=== PATIENT | male | born 1995 | race Caucasian/White ===

== ENCOUNTER 2023-12-01 06:13 | Day surgery (SDC) | payer BC ==
[2023-12-01] MEDS ORDERED: Midazolam 1 MG/ML 2 ML SDV ONE (07:21)
[2023-12-01] MEDS ORDERED: Propofol 200 MG/20 ML SDV ONE ×3 (07:21→08:10)
[2023-12-01] MEDS ORDERED: fentaNYL 50 MCG/ML SDV ONE (07:21)
[2023-12-01] MEDS: Lactated Ringers 1,000 ML IV SCH (07:32)
== END 2023-12-01 09:50 | disposition home or self-care (01) ==
LOC: JP.SDS 06:13
PROVIDERS: ATTEND Student in an Organized Health Care Education/Training Program
DX: D12.5 Benign neoplasm of sigmoid colon (principal); K29.51 Unspecified chronic gastritis with bleeding; I10 Essential (primary) hypertension; G47.33 Obstructive sleep apnea (adult) (pediatric); F41.9 Anxiety disorder, unspecified
CPT/HCPCS: 43239; 45385; 88305; 93005; J2250; J2704; J3010; J7120; 93010

== ENCOUNTER 2024-07-19 16:15 | Emergency (ER) | payer BC ==
[2024-07-19] MEDS: Chlorthalidone 25 MG Tab PO ONE (17:04)
[2024-07-19 17:05] LABS: BASOPHILS ABSOLUTE AUTO 0.12 K/uL (0.00-0.10); BASOPHILS PERCENT AUTO 0.8 % (0.1-1.3); EOSINOPHILS ABSOLUTE AUTO 0.55 K/uL (0.00-0.40); EOSINOPHILS PERCENT AUTO 3.8 % (0.0-5.4); HEMATOCRIT 42.1 % (38.4-49.7); HEMOGLOBIN 13.9 g/dL (12.9-16.9); IMMATURE GRAN ABSOLUTE AUTO 0.16 K/uL (0.00-0.23); IMMATURE GRAN PERCENT AUTO 1.1 % (0.0-0.7); LYMPHOCYTES ABSOLUTE AUTO 2.66 K/uL (0.8-3.3); LYMPHOCYTES PERCENT AUTO 18.4 % (11.4-47.7); MEAN CORPUSCULAR HEMOGLOBIN 26.4 pg (31.6-35.5); MEAN CORPUSCULAR VOLUME 79.9 fL (81.4-99.0); MONOCYTES ABSOLUTE AUTO 1.43 K/uL (0.20-0.90); MONOCYTES PERCENT AUTO 9.9 % (3.3-12.6); NEUTROPHILS ABSOLUTE AUTO 9.52 K/uL (1.0-7.6); PLATELET COUNT,PLT 337 K/uL (130-375); RED BLOOD CELL COUNT 5.27 M/uL (4.14-5.76); WHITE BLOOD CELL COUNT,WBC 14.4 K/uL (3.2-11.0)
[2024-07-19] MEDS: Ondansetron 4 MG Tab.DIS PO ONE ×2 (17:11→19:06)
[2024-07-19 17:25] LABS: HEMOGLOBIN A1C 7.3 % (4.5-6.2)
[2024-07-19 17:26] LABS: A/G RATIO 0.8 (1.2-2.2); ALANINE AMINOTRANSFERASE,ALT 36 U/L (12-78); ALBUMIN 3.3 g/dL (3.4-5.0); ALKALINE PHOSPHATASE 79 U/L (46-116); ANION GAP 7.7 mmol/L (5.0-14.0); ASPARTATE AMNIOTRANSFERASE,AST 18 U/L (15-37); BILIRUBIN TOTAL 0.3 mg/dL (0.2-1.0); BLOOD UREA NITROGEN,BUN 8 mg/dL (7-18); CALCIUM 9.7 mg/dL (8.5-10.1); CARBON DIOXIDE,CO2 35 mmol/L (21-32); CHLORIDE,CL 101 mmol/L (100-108); CREATININE 0.7 mg/dL (0.8-1.3); EST CRCL DRUG DOSING (CG) 145.58 mL/min; ESTIMATED GFR 128 mL/min (>60); GLUCOSE RANDOM 123 mg/dL (74-106); POTASSIUM,K 3.7 mmol/L (3.6-5.2); PROTEIN TOTAL,TP 7.6 g/dL (6.4-8.2); SODIUM,NA 140 mmol/L (140-148)
[2024-07-19] MEDS: Ondansetron 4 MG/2 ML SDV IVPUSH ONE (17:34)
[2024-07-19] MEDS: Meclizine 25 MG Tab PO ONE ×2 (18:15→19:41)
== END 2024-07-19 20:44 | disposition home or self-care (01) ==
LOC: JP.ED 16:15
DX: R42 Dizziness and giddiness (principal); I10 Essential (primary) hypertension; E11.65 Type 2 diabetes mellitus with hyperglycemia; E66.9 Obesity, unspecified; Z79.899 Other long term (current) drug therapy; Z68.44 Body mass index [BMI] 60.0-69.9, adult
CPT/HCPCS: 36415; 70450; 80053; 83036; 85025; 99284; A9270; Q0162

== ENCOUNTER 2025-07-09 07:41 | Day surgery (SDC) | payer BC ==
[~2025-07-09 07:41] MED LIST: Midazolam 1 MG/ML 2 ML SDV ONE; Propofol 200 MG/20 ML SDV ONE; fentaNYL 50 MCG/ML SDV ONE
[2025-07-09] MEDS: Lactated Ringers 1,000 ML IV SCH (08:25)
[2025-07-09] MEDS ORDERED: Propofol 200 MG/20 ML SDV ONE (09:56)
== END 2025-07-09 11:10 | disposition home or self-care (01) ==
LOC: JP.SDS 07:41
PROVIDERS: ATTEND Surgery
DX: E61.1 Iron deficiency (principal); Z86.0101 Personal history of adenomatous and serrated colon polyps
CPT/HCPCS: 00812; 45378; J2250; J2704; J3010; J7120